=== PATIENT | male | born 1995 | race African-American/Black ===

== ENCOUNTER 2018-02-10 15:21 | Inpatient (IN) | payer OTHER, SELFPAY ==
[2018-02-10 15:36] LABS: #Eosinphils 0.1 thou/uL (0.0-0.7); #Lymphocytes 1.8 thou/uL (1.20-3.40); #Monocytes 0.8 thou/uL (0.11-0.59); #Neutrophils 7.5 thou/uL (1.40-6.50); %Basophils 0.3 % (0.0-1.0); %Eosinophils 1.1 % (0.0-10.0); %Lymphocytes 17.7 % (21.0-51.0); %Monocytes 7.7 % (0.0-10.0); %Neutrophils 73.2 % (42.0-75.0); Hemoglobin 15.7 g/dL (14.0-18.0); Mean Corpuscular HGB CONC 34.5 g/dL (32.0-36.0); Mean Corpuscular Hemoglobin 29.1 pg (27.0-31.0); Mean Corpuscular Volume 84.4 fL (78.0-98.0); Mean Platelet Volume 7.7 fL (7.4-10.4); Platelet Count 314 thou/uL (130-400); RBC Distribution Width 12.2 % (11.5-14.5); White Blood Cell (WBC) Count 10.3 thou/uL (4.8-10.8)
[2018-02-10] MEDS ORDERED: Ondansetron HCl/PF 4 MG/2 ML Vial ONE (15:36)
[2018-02-10 15:43] LABS: INR-International Normal Ratio 1.1; PTT 23.7 SEC (22.9-36.1); Prothrombin Time 13.8 SEC (12.0-14.7)
[2018-02-10 15:53] LABS: ALT (SGPT) 24 U/L (8-55); AST (SGOT) 21 U/L (5-34); Albumin 3.9 g/dL (3.5-5.0); Alkaline Phosphatase 84 U/L (40-150); Anion Gap 14 mmol/L (10-20); BUN (Urea Nitrogen) 10 mg/dL (8.9-20.6); Bilirubin, Total 0.5 mg/dL (0.2-1.2); Calc. Creatinine Clearance 0 mL/min (70-130); Carbon Dioxide 20 mmol/L (22-29); Chloride 108 mmol/L (98-107); Estimated GFR-MDRD 89; Glucose 112 mg/dL (70-105); Potassium 4.2 mmol/L (3.5-5.1); Protein, Total 6.9 g/dL (6.0-8.3); Sodium 138 mmol/L (136-145)
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
[2018-02-10] MEDS ORDERED: hydrALAZINE 20 MG/ML VIAL SLOW IVP PRN (18:51)
[2018-02-10] MEDS ORDERED: Ondansetron HCl/PF 4 MG/2 ML Vial IVP PRN (18:51)
[2018-02-10] MEDS ORDERED: Acetaminophen 1,000 MG in Premix Bag 1 BAG IVPB SCH (18:51)
[2018-02-10] MEDS ORDERED: Promethazine HCl 25 MG/ML VIAL IM PRN ×2 (18:51)
[2018-02-10] MEDS ORDERED: Ondansetron ODT 4 MG TAB PO PRN (18:51)
[2018-02-10] MEDS ORDERED: traMADol HCl 50 MG TAB PO PRN ×2 (18:51)
[2018-02-10] MEDS ORDERED: Dextrose 50% Abboject 50 ML SYRINGE SLOW IVP PRN (18:51)
[2018-02-10] MEDS ORDERED: Dextrose 5% in Water 1,000 ML IV PRN (18:51)
[2018-02-10 19:13] LABS: Hemoglobin 16.7 g/dL (14.0-18.0)
[2018-02-10 19:30] LABS: Lactic Acid 2.3 mmol/L (0.5-2.2)
[2018-02-10] MEDS: Ibuprofen 800 MG TAB PO SCH (20:00)
[2018-02-10 21:51] VITALS: BMI 37.1
[2018-02-11] MEDS: Acetaminophen 500 MG TAB PO SCH ×3 (02:00→13:13)
[2018-02-11] MEDS: Ibuprofen 800 MG TAB PO SCH ×2 (02:00→13:12)
[2018-02-11 12:50] LABS: Anion Gap 12 mmol/L (10-20); BUN (Urea Nitrogen) 10 mg/dL (8.9-20.6); Calc. Creatinine Clearance 167 mL/min (70-130); Calcium 8.9 mg/dL (7.8-10.44); Carbon Dioxide 25 mmol/L (22-29); Chloride 103 mmol/L (98-107); Estimated GFR-MDRD Greater than 90; Glucose 118 mg/dL (70-105); Potassium 3.5 mmol/L (3.5-5.1); Sodium 136 mmol/L (136-145)
[2018-02-11 13:24] LABS: Hemoglobin 16.1 g/dL (14.0-18.0)
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
[2018-02-11 15:55] VITALS: BP 133/84; TEMP 98.1
[2018-02-11 18:24] LABS: Hemoglobin 14.7 g/dL (14.0-18.0); Manual Diff?? YES; Mean Corpuscular HGB CONC 33.9 g/dL (32.0-36.0); Mean Corpuscular Hemoglobin 28.7 pg (27.0-31.0); Mean Corpuscular Volume 84.7 fL (78.0-98.0); Mean Platelet Volume 8.7 fL (7.4-10.4); Platelet Count 336 thou/uL (130-400); RBC Distribution Width 12.4 % (11.5-14.5); Red Blood Cell (RBC) Count 5.13 mill/uL (4.70-6.10); White Blood Cell (WBC) Count 13.7 thou/uL (4.8-10.8)
[2018-02-11 18:36] LABS: Band 2 % (5-11); Lymphocytes 32 % (21-51); MDiff Complete? YES; Monocytes 8 % (0-10); Neutrophil 58 % (42-75); PLT Morphology Comment Appears Adequate
== END 2018-02-11 18:00 | disposition home or self-care (01) | DRG 605 ==
LOC: ERS 15:21 → SURG B 15:54
PROVIDERS: ADMIT Surgery; ATTEND Surgery
DX: S21.112A Laceration without foreign body of left front wall of thorax without penetration into thoracic cavity, initial encounter (principal); W26.0XXA Contact with knife, initial encounter; I95.9 Hypotension, unspecified; E66.9 Obesity, unspecified
CPT/HCPCS: 36415; 36430; 71045; 71260; 74177; 80048; 80053; 82150; 83605; 85014; 85018; 85025; 85610; 85730; 86850; 86900; 86901; G0390; J0131; J2405; P9016

== ENCOUNTER 2018-03-03 09:09 | Outpatient (CLI) | payer SELFPAY ==
--- NOTE | 2018-03-03 11:32 | RAD ---
CHEST TWO VIEWS: HISTORY: Chest pain. COMPARISON: None. FINDINGS: Two views of the chest show normal sized cardiomediastinal silhouette. There is no evidence of consol idation, mass, or pleural effusion. The bones are unremarkable. IMPRESSION: No evidence of acute cardiopulmonary disease. POS: [facility]
== END 2018-03-03 09:10 | disposition home or self-care (01) ==
LOC: RAD 09:09
PROVIDERS: ATTEND Physician Assistant
DX: S21.119D Laceration without foreign body of unspecified front wall of thorax without penetration into thoracic cavity, subsequent encounter (principal)
CPT/HCPCS: 71046